=== PATIENT | female | born 1980 | race Caucasian/White ===

== ENCOUNTER → 2018-05-04 | Outpatient (CLI) | payer BC ==
--- NOTE | 2018-05-05 14:01 | RADIOLOGY REPORT (SQ) ---
EXAM DESCRIPTION: MRI LT LOWER JOINT WITHOUT COMPLETED DATE/TIME: 05/04/2018 7:43 pm REASON FOR STUDY: M25.562 PAIN IN LEFT KNEE M25.562 PAIN IN LEFT KNEE COMPARISON: None. TECHNIQUE: Leftknee images acquired and stored on PACS. Multiplanar images include fat sensitive se quences as T1, water sensitive sequences as FST2 or STIR, cartilage sensitive sequences as FSPD, and gradient echo sequences. LIMITATIONS: None. FINDINGS: JOINT AND BURSAE: Minimal joint effusion. No popliteal cyst. BONE CORTEX AND MARROW: There is a transverse incomplete fracture of the proximal tibia distal to the tibial plateau. Extensive surrounding reactive marrow edema. Likely stress fracture. ACL: Intact. No degeneration or ganglion cyst. PCL: Intact. MCL: Intact. No periligamentous edema or fluid. LCL: Intact. No periligamentous edema or fluid. MEDIAL MENISCUS: No tears. No abnormal signal. LATERAL MENISCUS: No tears. No abnormal signal. MEDIAL COMPARTMENT: Cartilage preserved. No bone bruises or reactive marrow edema. No osteophytes. LATERAL COMPARTMENT: Cartilage preserved. No bone bruises or reactive marrow edema. No osteophytes. PATELLA: No chondromalacia. No subchondral cysts. Medial and lateral retinacula intact. EXTENSOR MECHANISM: Intact. Quadriceps and patella tendons normal. SOFT TISSUES: Adjacent muscles and subcutaneous tissues normal. Normal flow void in popliteal artery and vein. OTHER: No other significant finding. IMPRESSION: Incomplete transverse stress fracture proximal tibia with extensive surrounding marrow e ev. TECHNICAL DOCUMENTATION: JOB ID: [id number] [facility]- All Rights Reserved Reading location - IP/workstation name: [email or web address]
== END ==
LOC: RAD 19:52
PROVIDERS: ATTEND Orthopaedic Surgery Sports Medicine
DX: M25.562 Pain in left knee (principal)

== ENCOUNTER 2019-12-02 15:35 | Emergency (ER) | payer BC, OTHER ==
[2019-12-02 15:53] VITALS: BP 144/98
--- NOTE | 2019-12-02 16:59 | ER Document Report ---
ED General - General Chief Complaint: Shortness Of Breath Stated Complaint: COUGH Time Seen by Provider: 12/02/19 16:14 Primary Care Provider: YAYA MAC MD [Primary Care Provider] - Follow up as needed Notes: HPI: 39-year-old female who presents today with the onset 5 days ago of some runny nose congestion and cough. She had recently around 2 weeks ago went to [place]. No other travel. She denies any fevers. Last antipyretic for body aches was provided yesterday. No chest pain, calf pain, or leg swelling. She was actually sent here from the [facility] department after negative strep for COVID testing. ROS: See HPI All other review of systems reviewed and otherwise negative Reviewed vital signs and nursing note as charted by RN. PHYSICAL EXAM: CONSTITUTIONAL: Alert and oriented and responds appropriately to questions. Well-appearing; well-nourished HEAD: Normocephalic; atraumatic EYES: PERRL; Conjunctivae clear, sclerae non-icteric ENT: Normal nose; bilateral nonpurulent nasal rhinorrhea; moist mucous membranes; pharynx without lesions noted NECK: Supple without meningismus; non-tender; no cervical lymphadenopathy, no masses CARD: Regular rate and rhythm; no murmurs; symmetric distal pulses RESP: Normal chest excursion without splinting or tachypnea; breath sounds clear and equal bilaterally; no wheezes, very minimally scattered rhonchi, no rales ABD/GI: Normal bowel sounds; non-distended; soft, non-tender; no palpable organomegaly or masses BACK: The back appears normal and is non-tender to palpation EXT: Normal ROM in all joints; non-tender to palpation; no edema SKIN: No acute lesions noted NEURO: CN 2-12 intact; 5/5 bilateral upper and lower extremity strength with sensation intact to light touch PSYCH: The patient's mood and manner are appropriate. Grooming and personal hygiene are appropriate. TRAVEL OUTSIDE OF THE [place] IN LAST 30 DAYS: No Past Medical History - Social History Smoking Status: Never Smoker Family History: Reviewed & Not Pertinent Patient has suicidal ideation: No Patient has homicidal ideation: No Physical Exam - Vital signs Vitals: Temp Pulse Resp BP Pulse Ox 98.9 F 73 16 144/98 H 98 12/02/19 15:51 12/02/19 15:51 12/02/19 15:51 12/02/19 15:51 12/02/19 15:51 Course - Re-evaluation Re-evalutation: 12/02/19 16:57 Given the length of duration of symptoms, afebrile, not hypoxic or tachycardic, the appropriate testing was ordered in triage. Negative strep. The coronavirus will be sent as an outpatient test. Portable x-ray is pending. If this is unremarkable, patient will be discharged home with isolation/quarantine instructions and strict return precautions for shortness of breath. - Vital Signs Vital signs: Temp Pulse Resp BP Pulse Ox 98.9 F 73 16 144/98 H 98 12/02/19 15:51 12/02/19 15:51 12/02/19 15:51 12/02/19 15:51 12/02/19 15:51 Discharge - Discharge Clinical Impression: Nasal congestion, Cough Condition: Good Disposition: HOME, SELF-CARE Additional Instructions: Come back immediately for any worsening cough, difficulty breathing, chest pain, leg swelling, or any other acute problems. Please make sure that you follow the quarantine instructions we have provided. Referrals: YAYA MAC MD [Primary Care Provider] - Follow up as needed
--- NOTE | 2019-12-02 18:15 | RADIOLOGY REPORT (SQ) ---
EXAM DESCRIPTION: CHEST SINGLE VIEW COMPLETED DATE/TIME: 12/02/2019 5:53 pm REASON FOR STUDY: 7; cough; PPE; no fever COMPARISON: None. EXAM PARAMETERS: NUMBER OF VIEWS: One view. TECHNIQUE: Single frontal radiographic view of the chest acquired. RADIATION DOSE: NA LIMITATIONS: None. FINDINGS: LUNGS AND PLEURA: No opacities, masses or pneumothorax. No pleural effusion. MEDIASTINUM AND HILAR STRUCTURES: No masses. Contour normal. HEART AND VASCULAR STRUCTURES: Heart normal in size. Normal vasculature. BONES: No acute findings. HARDWARE: None in the chest. OTHER: No other significant finding. IMPRESSION: NO ACUTE RADIOGRAPHIC FINDING IN THE CHEST. TECHNICAL DOCUMENTATION: JOB ID: [id number] 2010 [employer]- All Rights Reserved Reading location - IP/workstation name: [email or web address]
== END 2019-12-02 18:41 | disposition home or self-care (01) ==
LOC: ER 15:35
DX: R09.81 Nasal congestion (principal); R05 Cough; R06.02 Shortness of breath; R09.89 Other specified symptoms and signs involving the circulatory and respiratory systems; R00.0 Tachycardia, unspecified; Z20.828 Contact with and (suspected) exposure to other viral communicable diseases
CPT/HCPCS: 36415; 71045; 87070; 87635; 87880; 99283